=== PATIENT | female | born 1990 | race Caucasian/White ===

== ENCOUNTER 2019-06-03 11:32 | Emergency (ER) | payer BC ==
[~2019-06-03] VITALS: Ht 154.9 cm; Wt 81.6 kg
[2019-06-03 11:36] VITALS: BP 112/60
--- NOTE | 2019-06-03 11:43 | NUR ---
patient ambulated to bed 09
--- NOTE | 2019-06-03 12:00 | NUR ---
Dr. Ng evaluating patient at bedside.
[2019-06-03] MEDS ORDERED: KETOROLAC 30 MG/ML VIAL IVP ONE (12:05)
[2019-06-03] MEDS ORDERED: ONDANSETRON 4 MG/2 ML VIAL IVP ONE (12:05)
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
[2019-06-03] MEDS ORDERED: MORPHINE SULFATE 2 MG/ML SYR IVP ONE (12:55)
[2019-06-03] MEDS ORDERED: METOCLOPRAMIDE 10 MG/2 ML INJ VIAL IVP ONE (12:55)
--- NOTE | 2019-06-03 13:26 | NUR ---
PT REFUSED MORPHINE AND REGLAN MEDICATION. STATED, SHE FEELS BETTER HEADACHE CURRENTLY AT A 3/10 WITH NO NAUSEA. PLANS TO TAKE IT EASY THIS WEEKEND
--- NOTE | 2019-06-03 13:33 | NUR ---
Patient discharged with v/s stable. Written and verbal after care instructions given and explained. Patient alert, oriented and verbalized understanding of instructions. Ambulatory with steady gait. All questions addressed prior to discharge. ID band removed. Patient advised to follow up with PMD. Rx of IBUPROFEN/ZOFRAN given. Patient educated on indication of medication including possible reaction and side effects. Opportunity to ask questions provided and answered.
[2019-06-03 13:34] VITALS: BP 125/71
== END 2019-06-03 13:33 | disposition home or self-care (01) ==
LOC: MED 11:32
DX: S06.0X0A Concussion without loss of consciousness, initial encounter (principal); W22.8XXA Striking against or struck by other objects, initial encounter; Y93.89 Activity, other specified; Y92.89 Other specified places as the place of occurrence of the external cause; Y99.8 Other external cause status
CPT/HCPCS: 81002; 81025; 96372; 96374; 99283; J1885; J2405; J2270; J2765